=== PATIENT | female | born 1955 ===

== ENCOUNTER 2019-11-26 01:33 | Emergency (ER) | payer MEDICARE ==
[~2019-11-26] VITALS: Ht 137.2 cm; Wt 62.9 kg
[2019-11-26 01:35] VITALS: BP 170/91
--- NOTE | 2019-11-26 02:02 | NUR ---
MD AT BEDSIDE TO ASSESS PT
--- NOTE | 2019-11-26 02:06 | NUR ---
THIS IS A 64Y F THAT COMES IN BECAUSE SHE FEELS SOMETHING MOVING UNDER HER SKIN ON HER BOTTOM AND LOWER BACK. PT STS SHE WAS SEEN FOR THIS AT ANOTHER HOSPITAL AND DOES NOT FEEL THAT SHE GOT APPROPRIATE CARE. PT STS SHE IS UNABLE TO SLEEP AND IS SHOWERING 2-3TIMES EVERY NIGHT. PT STS LAST NIGHT SHE SLEPT ON THE CAMMODE AND THAT IS THE ONLY TIME SHE FEELS RELIEF FROM THE SYMPTOMS.
--- NOTE | 2019-11-26 02:28 | NUR ---
PT TEARFUL WITH LAB, STS SHE IS TERRIFIED OF NEEDLES AND ALWAYS HAS BEEN, RN TO BEDSIDE TO ASSIST WITH LAB DRAW AND PT COMFORT
[2019-11-26 02:43] LABS: ALBUMIN 3.7 g/dL (3.4-5.0); ANION GAP 5 mmol/L (5-15); CALCIUM 8.2 mg/dL (8.5-10.1); CHLORIDE 109 mmol/L (98-107); CREATININE 1.29 mg/dL (0.55-1.02)
== END 2019-11-26 03:27 | disposition home or self-care (01) ==
LOC: ED 03:21
DX: R20.8 Other disturbances of skin sensation (principal); R25.2 Cramp and spasm; M54.5 Low back pain
CPT/HCPCS: 36415; 80048; 82040; 99283